=== PATIENT | female | born 1995 | race Caucasian/White ===

== ENCOUNTER 2016-05-20 19:04 | Emergency (ER) | payer BC ==
[~2016-05-20] VITALS: Ht 154.9 cm; Wt 60.0 kg
[~2016-05-20 19:04] MED LIST: BEN25 PO; EPIN0.3P4 INJ; FAMO-18 PO; PRED20TA PO
[2016-05-20 20:00] VITALS: Ht 154.9 cm; Wt 60.0 kg
[2016-05-20] MEDS ORDERED: AMO500 PO (20:14)
[2016-05-20] MEDS ORDERED: IBUP-1542 PO (20:14)
--- NOTE | 2016-05-20 20:25 | ERD ---
ER Documentation Chief Complaint Date/Time DATE: 05/20/16 TIME: 20:[address] WITH RIGHT EAR PAIN X 5 DAYS, DENEIS FEVER HPI 20-year-old female presents to emergency department for complaints of right- sided sore throat for 5 days, radiated to the right ear. Patient described the pain as throbbing pain, 6/10 scale, is worse upon swallowing. Patient denies any fever or chills. Patient denies any or discharge. Patient denies any problems with hearing. Patient denies a stridor or shortness of breath. ROS All systems reviewed and are negative except as per history of present illness. Medications Home Meds Active Scripts Ibuprofen* (Motrin*) 600 Mg Tab, 600 MG PO Q6H Y for PAIN AND OR ELEVATED TEMP, #30 TAB Prov:MECCA COCHRAN [employer] 05/20/16 Amoxicillin* (Amoxicillin*) 500 Mg Cap, 500 MG PO TID for 10 Days, CAP Prov:MECCA COCHRAN [employer] 05/20/16 Diphenhydramine Hcl* (Benadryl*) 25 Mg Cap, 25 MG PO Q6 Y for ITCHING/RASH, #30 TAB Prov:ERICKSON ALONSO MD 11/18/15 Prednisone* (Prednisone*) 20 Mg Tab, 40 MG PO DAILY for 6 Days, TAB Prov:ERICKSON ALONSO MD 11/18/15 Famotidine* (Pepcid*) 20 Mg Tablet, 20 MG PO BID for 7 Days, TAB Prov:ERICKSON ALONSO MD 11/18/15 Epinephrine (Epipen 2-Ady) 0.3 Mg/0.3 Ml Pen.injctr, 1 EA INJ ONCE Y for ALLERGIC REACTION, #1 EA Prov:ERICKSON ALONSO MD 11/18/15 Allergies Allergies: Coded Allergies: No Known Allergy (Unverified , 11/18/15) PMhx/Soc Medical and Surgical Hx: pt denies Medical Hx, pt denies Surgical Hx History of Surgery: No Anesthesia Reaction: No Hx Neurological Disorder: No Hx Respiratory Disorders: No Hx Cardiac Disorders: No Hx Psychiatric Problems: No Hx Miscellaneous Medical Probl: No Hx Alcohol Use: No Hx Substance Use: No Hx Tobacco Use: Yes Smoking Status: Never smoker FmHx Family History: No coronary disease, No diabetes, No other Physical Exam Vitals Vital Signs Date Time Temp Pulse Resp B/P Pulse Ox O2 Delivery O2 Flow Rate FiO2 05/20/16 20:00 99.4 89 20 121/79 98 Physical Exam GENERAL: The patient is well developed and appropriate for usual state of health, in no apparent distress. HEENT: Atraumatic. Ears: Normal tympanic membrane, no erythema or bulging. No ear canal swelling. No ear discharge. Nose: normal nasal turbinates, no erythema or swelling. Normal nasal discharge. Throat: oropharynx erythematous with noted right tonsillar swelling +1 with right tonsillar exudate noted, no peritonsillar abscess noted. No lymphadenopathy. CHEST: Clear to auscultation bilaterally. There are no rales, wheezes or rhonchi. HEART: Regular rate and rhythm. No murmurs, clicks, rubs or gallops. No S3 or S4. ABDOMEN: Soft, nontender and nondistended. Good bowel sounds. No rebound or guarding. No gross peritonitis. No gross organomegaly or masses. No Rojas sign or McBurney point tenderness. BACK: No midline or flank tenderness. EXTREMITIES: Equal pulses bilaterally. There is no peripheral clubbing, cyanosis or edema. No focal swelling or erythema. Full range of motion. Grossly neurovascularly intact. NEURO: Alert and oriented. Cranial nerves 2-12 intact. Motor strength in all 4 extremities with 5/5 strength. Sensation grossly intact. Normal speech and gait. SKIN: There is no apparent rash or petechia. The skin is warm and dry. HEMATOLOGIC AND LYMPHATIC: There is no evidence of excessive bruising or lymphedema. No gross cervical, axillary, or inguinal lymphadenopathy. Procedures/MDM Medical decision making: Patient symptoms was likely consistent with acute bacterial pharyngitis, most likely strep throat. Patient does not have any symptoms of peritonsillar abscess, no stridor, no symptoms of laryngitis, epiglottitis, no drooling noted. No symptoms of oral airway obstruction noted. The symptoms of any cellulitis. No symptoms of any dental abscess. Prescription was given for amoxicillin, ibuprofen, is advised to follow-up with primary care doctor in 2-3 days for reevaluation symptoms, advised to do salt water gargles and rest. Patient is advised to return to emergency department for any worsening symptoms. Departure Diagnosis: Primary Impression: Acute bacterial pharyngitis Condition: Stable Patient Instructions: Pharyngitis, Strep (Presumed) MECCA COCHRAN NP May 20, 2016 20:25
== END 2016-05-20 21:02 | disposition home or self-care (01) ==
LOC: FTE 19:04
DX: J02.8 Acute pharyngitis due to other specified organisms (principal); B96.89 Other specified bacterial agents as the cause of diseases classified elsewhere; Z87.891 Personal history of nicotine dependence
CPT/HCPCS: 99283